=== PATIENT | male | born 1990 | race Two or more races ===

== ENCOUNTER 2018-12-13 16:17 | Emergency (ER) | payer OTHER ==
[~2018-12-13] VITALS: Ht 170.2 cm; Wt 87.4 kg
[2018-12-13 20:00] VITALS: BP 107/54
== END 2018-12-13 20:23 | disposition home or self-care (01) ==
LOC: ED 20:17
DX: R51 Headache (principal); H66.001 Acute suppurative otitis media without spontaneous rupture of ear drum, right ear; J01.00 Acute maxillary sinusitis, unspecified
CPT/HCPCS: 70450; 70486; 99284